=== PATIENT | female | born 1970 | race Caucasian/White ===

== ENCOUNTER 2017-06-06 17:47 | Inpatient (IN) | payer OTHER ==
[~2017-06-06] VITALS: Ht 170.2 cm; Wt 77.9 kg
[2017-06-07] MEDS ORDERED: BYSTOLIC10 MG PO (19:47)
[2017-06-07 20:39] VITALS: BP 119/83; PULSE 101; TEMP 98.1
[2017-06-08] MEDS ORDERED: ASPIRIN E.C. 8181 MG PO (00:10)
[2017-06-08] MEDS ORDERED: JANUVIA 100MG100 MG PO (00:11)
[2017-06-08] MEDS ORDERED: BIOTIN10000 MC1 PO (00:12)
[2017-06-08] MEDS ORDERED: CALCIUM 600MG+D1 TAB PO (00:13)
[2017-06-08] MEDS ORDERED: MICROZIDE12.5 MG PO (00:14)
[2017-06-08] MEDS ORDERED: LEVSIN0.125 M1 PO (00:16)
[2017-06-08] MEDS ORDERED: MAG-OX 400400 MG/TAB PO (00:17)
[2017-06-08] MEDS ORDERED: MELATIN 3 MG-11 TAB PO (00:18)
[2017-06-08] MEDS ORDERED: NORA-BE0.35 MG PO (00:19)
[2017-06-08] MEDS ORDERED: PROTONIX20 MG PO (00:20)
[2017-06-08] MEDS ORDERED: KLOR-CON 88 ME1 PO (00:21)
[2017-06-08] MEDS ORDERED: NATURAL E400 IU PO (00:25)
[2017-06-08] MEDS ORDERED: PRENATAL1 TA7 PO (00:28)
[2017-06-08 06:01] VITALS: BP 123/89; PULSE 92; TEMP 98.6
[2017-06-08 16:10] VITALS: BP 127/75; PULSE 86; TEMP 98.6
[2017-06-09 06:00] VITALS: BP 121/66; PULSE 93; TEMP 98.8
[2017-06-09 06:56] LABS: BASO # 0.1 (0.0-0.2); BASO % 1.1 % (0.0-2.0); EOS # 0.2 (0.0-0.7); EOS % 3.4 % (0-4.0); GRAN # 1.3 (1.4-6.5); GRAN % 29.4 % (42.2-75.2); LYMPH # 2.5 (1.2-3.4); LYMPH % 56.3 % (20.0-51.0); MEAN CELL VOLUME 92 fl (80.0-100.0); MEAN CORPUSCULAR HGB CONC 33 g/dl (33.0-37.0); MEAN PLATELET VOLUME 10.2 fl (7.4-10.4); MONO # 0.4 (0.1-0.6); MONO % 9.6 % (1.7-9.3); PLATELET COUNT 250 K/mm3 (130-400); RED BLOOD COUNT 3.88 M/mm3 (4.10-5.30); REDCELL DISTRIBUTION WIDTH-CV 16.2 % (11.5-14.5)
[2017-06-09 07:06] LABS: HEMATOCRIT 35.8 % (37.0-47.0); HEMOGLOBIN 11.8 g/dl (12.5-16.0); MEAN CORPUSCULAR HEMOGLOBIN 30 pg (27.0-31.0)
[2017-06-09 07:46] LABS: ALBUMIN 3.4 gm/dL (3.5-5.0); BILIRUBIN,TOTAL 0.6 mg/dL (0.0-1.0); CALCIUM 8.8 mg/dL (8.4-10.2); CREATININE, serum 0.57 mg/dL (0.52-1.25); MAGNESIUM 1.5 mg/dL (1.6-2.3); POTASSIUM 3.5 mmol/L (3.4-5.0); TOTAL PROTEIN 5.7 gm/dL (6.4-8.2)
[2017-06-09 15:35] VITALS: BP 126/74; PULSE 91; TEMP 98.3
[2017-06-10 06:00] VITALS: BP 137/85; PULSE 98; TEMP 98.3
[2017-06-10 16:21] VITALS: BP 117/58; PULSE 96; TEMP 98.1
[2017-06-11 06:00] VITALS: BP 127/55; PULSE 91; TEMP 97.4
[2017-06-11 15:52] VITALS: BP 123/63; PULSE 100; TEMP 97.8
[2017-06-12 06:15] VITALS: BP 124/62; PULSE 84; TEMP 98
[2017-06-12 16:05] VITALS: BP 124/60; PULSE 86; TEMP 98.2
[2017-06-13 06:05] VITALS: BP 125/70; PULSE 88; TEMP 98.4
[2017-06-13 06:38] LABS: ALBUMIN 3.2 gm/dL (3.5-5.0); BILIRUBIN,TOTAL 0.5 mg/dL (0.0-1.0); CALCIUM 8.7 mg/dL (8.4-10.2); CREATININE, serum 0.55 mg/dL (0.52-1.25); POTASSIUM 3.4 mmol/L (3.4-5.0); TOTAL PROTEIN 5.8 gm/dL (6.4-8.2)
[2017-06-13 15:02] VITALS: BP 110/70; PULSE 102; TEMP 98
[2017-06-14 05:50] VITALS: BP 126/71; PULSE 86; TEMP 98.1
[2017-06-14 15:56] VITALS: BP 124/74; PULSE 97; TEMP 98.1
[2017-06-15 05:36] VITALS: BP 118/83; PULSE 86; TEMP 98.3
[2017-06-15 17:21] VITALS: BP 127/70; PULSE 83; TEMP 97.6
[2017-06-16 05:51] VITALS: BP 133/82; PULSE 85; TEMP 98.2
[2017-06-16 18:02] VITALS: BP 122/64; PULSE 95; TEMP 98.3
[2017-06-17 06:23] VITALS: BP 137/70; PULSE 88; TEMP 98.1
[2017-06-17 16:37] VITALS: BP 134/69; PULSE 87; TEMP 97.6
[2017-06-18 06:04] VITALS: BP 115/62; PULSE 81; TEMP 97.9
[2017-06-18 16:09] VITALS: BP 118/68; PULSE 81; TEMP 98.1
[2017-06-19 06:00] VITALS: BP 121/69; PULSE 77; TEMP 97.7
[2017-06-19 14:51] VITALS: BP 139/72; PULSE 99; TEMP 97.8
[2017-06-20 06:00] VITALS: BP 112/43; PULSE 74; TEMP 97.6
[2017-06-20 18:06] VITALS: BP 120/65; PULSE 87; TEMP 98.6
[2017-06-21 06:28] VITALS: BP 123/67; PULSE 86; TEMP 98.3
[2017-06-21 15:45] VITALS: BP 108/56; PULSE 83; TEMP 98.1
[2017-06-22 07:06] VITALS: BP 113/55; PULSE 76; TEMP 98.1
[2017-06-22 15:52] VITALS: BP 112/66; PULSE 80; TEMP 98.1
[2017-06-23 06:00] VITALS: BP 117/49; PULSE 71; TEMP 98.1
[2017-06-23 07:14] LABS: BASO % 0.7 % (0.0-2.0); EOS # 0.2 (0.0-0.7); EOS % 3.3 % (0-4.0); GRAN # 1.3 (1.4-6.5); HEMATOCRIT 37.8 % (37.0-47.0); HEMOGLOBIN 12.6 g/dl (12.5-16.0); LYMPH # 2.5 (1.2-3.4); LYMPH % 55.5 % (20.0-51.0); MEAN CELL VOLUME 93 fl (80.0-100.0); MEAN CORPUSCULAR HEMOGLOBIN 31 pg (27.0-31.0); MEAN CORPUSCULAR HGB CONC 33 g/dl (33.0-37.0); MEAN PLATELET VOLUME 10.1 fl (7.4-10.4); MONO # 0.6 (0.1-0.6); MONO % 12.3 % (1.7-9.3); PLATELET COUNT 298 K/mm3 (130-400); RED BLOOD COUNT 4.05 M/mm3 (4.10-5.30)
[2017-06-23 07:29] LABS: ALBUMIN 3.3 gm/dL (3.5-5.0); BILIRUBIN,TOTAL 0.5 mg/dL (0.0-1.0); CALCIUM 9.2 mg/dL (8.4-10.2); CREATININE, serum 0.59 mg/dL (0.52-1.25); MAGNESIUM 1.6 mg/dL (1.6-2.3); POTASSIUM 3.6 mmol/L (3.4-5.0); TOTAL PROTEIN 6.2 gm/dL (6.4-8.2)
[2017-06-23 15:19] VITALS: BP 124/68; PULSE 85; TEMP 98.1
[2017-06-24 06:32] VITALS: BP 112/53; PULSE 75; TEMP 97.9
[2017-06-24 17:29] VITALS: BP 132/76; PULSE 83; TEMP 97.8
[2017-06-25 06:00] VITALS: BP 114/51; PULSE 73; TEMP 98.2
[2017-06-25 17:37] VITALS: BP 117/66; PULSE 81; TEMP 98.5
[2017-06-26 06:36] VITALS: BP 102/52; PULSE 81; TEMP 98.2
[2017-06-26 08:51] VITALS: BP 123/63; PULSE 80
[2017-06-26 15:10] VITALS: BP 125/66; PULSE 77; TEMP 97.7
[2017-06-27 05:36] VITALS: BP 114/62; PULSE 80; TEMP 98.1
[2017-06-27 15:24] VITALS: BP 117/67; PULSE 78
[2017-06-27 15:46] VITALS: TEMP 98.2
[2017-06-28 05:56] VITALS: BP 119/89; PULSE 97; TEMP 98.4
[2017-06-28 16:25] VITALS: BP 136/75; PULSE 74; TEMP 97.6
[2017-06-29 05:38] VITALS: BP 116/62; PULSE 76; TEMP 98.2
[2017-06-29 16:02] VITALS: BP 107/69; PULSE 78; TEMP 98.7
[2017-06-30 06:08] VITALS: BP 108/63; PULSE 70; TEMP 98
[2017-06-30 15:43] VITALS: BP 122/78; PULSE 79; TEMP 98
[2017-07-01 04:36] VITALS: BP 107/55; PULSE 78; TEMP 98.4
[2017-07-01 15:43] VITALS: BP 106/60; PULSE 71; TEMP 98.4
[2017-07-02 06:00] VITALS: BP 109/64; PULSE 76; TEMP 98.1
[2017-07-02 17:46] VITALS: BP 127/84; PULSE 78; TEMP 98
[2017-07-03 06:50] VITALS: BP 121/62; PULSE 72; TEMP 98.1
[2017-07-03 17:43] VITALS: BP 107/42; PULSE 78; TEMP 98.8
[2017-07-04 06:00] VITALS: BP 107/65; PULSE 69; TEMP 97.9
[2017-07-04] MEDS ORDERED: CLARITIN 1010 MG/TAB PO (10:21)
[2017-07-04] MEDS ORDERED: MIRALAX PA17 GM/Dose PO (10:22)
[2017-07-04] MEDS ORDERED: ULTRAM 50MG TAB50 MG PO (10:23)
== END 2017-07-04 14:05 | disposition home or self-care (01) | DRG 556 ==
PROVIDERS: Internal Medicine
DX: M62.81 Muscle weakness (generalized) (principal); G65.0 Sequelae of Guillain-Barre syndrome; H53.2 Diplopia; E11.9 Type 2 diabetes mellitus without complications; K58.9 Irritable bowel syndrome, unspecified; E28.2 Polycystic ovarian syndrome; I10 Essential (primary) hypertension
CPT/HCPCS: 99222-AI; 99232-AI; 99239; J1650; J1815